=== PATIENT | female | born 2000 | race Caucasian/White ===

== ENCOUNTER 2019-04-20 00:16 | Emergency (ER) | payer OTHER ==
[~2019-04-20] VITALS: Ht 157.5 cm; Wt 88.5 kg
[2019-04-20 00:24] VITALS: BP 135/77
--- NOTE | 2019-04-20 00:32 | NUR ---
PT AMBULATED TO BED 6
--- NOTE | 2019-04-20 00:44 | NUR ---
19/F CC STERNAL CHEST PAIN 3 HOURS. NON RADIATING. CHEST PAIN ON EXERTION. HX GERD, PRE-DIABETIC, MILD DEPRESSION, MURMUR. LMP 03/29/19 RX IRON + VITAMIN D. NO SIGNS OF ACUTE DISTRESS AT THIS TIME. BED IN LOWEST POSITION. WILL CONTINUE TO MONITOR.
[2019-04-20] MEDS ORDERED: KETOROLAC 60 MG/2 ML VIAL IM ONE (01:10)
[2019-04-20 02:21] VITALS: BP 135/77
== END 2019-04-20 01:30 | disposition home or self-care (01) ==
LOC: MED 00:16
DX: R07.89 Other chest pain (principal); K21.9 Gastro-esophageal reflux disease without esophagitis
CPT/HCPCS: 71045; 81025; 93005; 96372; 99283; J1885; Q0092